=== PATIENT | female | born 1945 | race African-American/Black ===

== ENCOUNTER → 2021-11-18 | Day surgery (SDC) | payer OTHER ==
[~2021-11-18] VITALS: Ht 154.9 cm; Wt 91.6 kg
[~2021-11-18] MED LIST: FOLIC ACID1 MG PO; LIPITOR40 MG PO; NORVASC5 MG PO; VALSARTAN160 MG PO
[2021-11-18 11:05] LABS: HGB 10.7 g/dl (12.5-16.0); MCHC 32.4 g/dL (32.0-36.0); MCV 89.4 fL (78.0-100.0); MPV 10.3 fL (6.0-9.5); RBC 3.69 M/uL (4.20-5.40); RDW 13.5 % (11.5-14.0); WBC 8.9 K/uL (4.0-10.5)
[2021-11-18 11:17] LABS: ALBUMIN 3.5 g/dL (3.4-5.0); BILIRUBIN - TOTAL 0.4 mg/dL (0.2-1.0); BUN/CREAT RATIO (CALC) 17.4 RATIO; CREATININE 0.86 mg/dL (0.51-0.95); GLOBULIN (CALCULATION) 4.7 g/dL; POTASSIUM 3.4 mmol/L (3.5-5.1); TOTAL PROTEIN 8.2 g/dL (6.4-8.2)
== END | disposition home or self-care (01) ==
LOC: FAS 10:24
PROVIDERS: Surgery
DX: D50.0 Iron deficiency anemia secondary to blood loss (chronic) (principal); K92.1 Melena; D12.0 Benign neoplasm of cecum; D12.3 Benign neoplasm of transverse colon; K57.30 Diverticulosis of large intestine without perforation or abscess without bleeding; K58.9 Irritable bowel syndrome, unspecified; K63.89 Other specified diseases of intestine; K29.50 Unspecified chronic gastritis without bleeding; K20.80 Other esophagitis without bleeding; I10 Essential (primary) hypertension; Z96.651 Presence of right artificial knee joint; Z87.891 Personal history of nicotine dependence
CPT/HCPCS: 36415; 80053; J1610; J2704; J7120